=== PATIENT | female | born 1935 | race Caucasian/White ===

== ENCOUNTER 2018-03-31 12:06 | Emergency (ER) | payer OTHER ==
--- NOTE | 2018-03-31 12:17 | EDPHY ---
H & P Stated Complaint: R UPPER QUAD ABD PAIN AND NAUSEA Time Seen by Provider: 03/31/18 12:16 HPI/ROS: CHIEF COMPLAINT: Abdominal pain and vomiting HISTORY OF PRESENT ILLNESS: The patient presents to the ED with complaints of sharp upper abdominal pain which she characterizes as a bandlike discomfort which started earlier today. She initially had nausea which is progressed to bilious vomiting. She continues to have pain which seems to be localized to the right upper quadrant. The patient denies any history of recent abdominal surgery. Past surgical history is significant for hysterectomy only. The patient takes no regular medications aside from vitamins. She denies any recent upper respiratory infections. She reports her symptoms are moderate in nature. REVIEW OF SYSTEMS: A comprehensive 10 point review of systems is otherwise negative aside from elements mentioned in the history of present illness. Source: Patient Exam Limitations: No limitations - Personal History Current Tetanus Diphtheria and Acellular Pertussis (TDAP): Yes - Medical/Surgical History Hx Asthma: No Hx Chronic Respiratory Disease: No Hx Diabetes: No Hx Cardiac Disease: No Hx Renal Disease: No Hx Cirrhosis: No Hx Alcoholism: No Hx HIV/AIDS: No Hx Splenectomy or Spleen Trauma: No Other PMH: DENIES - Social History Smoking Status: Never smoked - Physical Exam Exam: General Appearance: Alert, no distress Eyes: Pupils equal and round no pallor or injection ENT, Mouth: Mucous membranes moist Respiratory: There are no retractions, lungs are clear to auscultation Cardiovascular: Regular rate and rhythm Gastrointestinal: Tenderness to palpation right upper quadrant Neurological: 5/5 strength noted all 4 extremities Skin: Warm and dry, no rashes Musculoskeletal: Neck is supple nontender Extremities: symmetrical, full range of motion Constitutional: Initial Vital Signs Temperature (C) 36.3 C 03/31/18 12:11 Heart Rate 67 03/31/18 12:11 Respiratory Rate 18 03/31/18 12:11 Blood Pressure 142/59 H 03/31/18 12:11 O2 Sat (%) 96 03/31/18 12:11 O2 Delivery Mode Room Air Allergies/Adverse Reactions: lidocaine [Lidocaine] Allergy (Intermediate, Verified 03/31/18 12:09) Palpatations amoxicillin trihydrate [From Augmentin] Allergy (Mild, Verified 03/31/18 12:09) nausea potassium clavula *RETIRED-11/24/11 [From Augmentin] Allergy (Mild, Verified 12:09) nausea Sulfa (Sulfonamide Antibiotics) Allergy (Verified 03/31/18 12:09) Dizzy Home Medications: Medication Instructions Recorded Hydrocodone/APAP 5/325 [[place] 1 - 2 each PO Q6 PRN #20 tab 03/31/18 5/325] Ondansetron Odt [Zofran Odt] 4 mg PO Q4PRN PRN #20 tab 03/31/18 Medical Decision Making - Diagnostics Imaging Results: Imaging Impressions Abdomen Ultrasound 03/31/18 12:17 Impression: Normal right upper quadrant ultrasound. Findings discussed with Jose E Garcia 03/31/2018 at 13:06. ED Course/Re-evaluation: Patient presented to the ED for evaluation of right upper quadrant pain and vomiting. Her initial examination did demonstrate significant tenderness in the right upper quadrant. Patient had an IV established. She received IV Toradol and Zofran. She received a L of normal saline. Workup in the emergency department included a CBC, serum chemistries, liver function test and lipase all of which are normal. The patient was taken for right upper quadrant ultrasound which demonstrated no evidence of cholelithiasis or cholecystitis. The patient underwent serial examinations in the ED. I re-evaluated the patient at 2:20 p.m. And she is feeling much better. Her right upper quadrant tenderness has resolved and she has no abdominal tenderness noted on exam. At this point time I do feel the patient likely is experiencing a viral gastroenteritis which precipitated her symptoms today. I do not feel that CT imaging is indicated based upon her current exam and workup. The patient is comfortable being discharged home with a prescription for anti emetics and pain medication. She is given return precautions. Differential Diagnosis: Differential diagnosis considered includes cholecystitis, pancreatitis, gastroenteritis, mesenteric adenitis, intestinal ischemia - Data Points Laboratory Results: Laboratory Results 03/31/18 12:25 03/31/18 12:25 03/31/18 03/31/18 12:25 12:25 WBC 6.23 10^3/uL 10^3/uL (3.80-9.50) RBC 4.47 10^6/uL 10^6/uL (4.18-5.33) Hgb 14.1 g/dL g/dL (12.6-16.3) Hct 42.4 % % (38.0-47.0) MCV 94.9 fL fL (81.5-99.8) MCH 31.5 pg pg (27.9-34.1) MCHC 33.3 g/dL g/dL (32.4-36.7) RDW 13.1 % % (11.5-15.2) Plt Count 205 10^3/uL 10^3/uL (150-400) MPV 9.9 fL fL (8.7-11.7) Neut % (Auto) 75.1 % H % (39.3-74.2) Lymph % (Auto) 17.0 % % (15.0-45.0) [place] % (Auto) 7.1 % % (4.5-13.0) Eos % (Auto) 0.2 % L % (0.6-7.6) Baso % (Auto) 0.3 % % (0.3-1.7) Nucleat RBC Rel Count 0.0 % % (0.0-0.2) Absolute Neuts (auto) 4.68 10^3/uL 10^3/uL (1.70-6.50) Absolute Lymphs (auto) 1.06 10^3/uL 10^3/uL (1.00-3.00) Absolute Monos (auto) 0.44 10^3/uL 10^3/uL (0.30-0.80) Absolute Eos (auto) 0.01 10^3/uL L 10^3/uL (0.03-0.40) Absolute Basos (auto) 0.02 10^3/uL 10^3/uL (0.02-0.10) Absolute Nucleated RBC 0.00 10^3/uL 10^3/uL (0-0.01) Immature Gran % 0.3 % % (0.0-1.1) Immature Gran # 0.02 10^3/uL 10^3/uL (0.00-0.10) Sodium 134 mEq/L L mEq/L (135-145) Potassium 3.9 mEq/L mEq/L (3.5-5.2) Chloride 103 mEq/L mEq/L (97-110) Carbon Dioxide 24 mEq/l mEq/l (22-31) Anion Gap 7 mEq/L mEq/L (6-14) BUN 27 mg/dL H mg/dL (7-23) Creatinine 0.8 mg/dL mg/dL (0.6-1.0) Estimated GFR > 60 Glucose 111 mg/dL H mg/dL (70-100) Calcium 9.3 mg/dL mg/dL (8.5-10.4) Total Bilirubin 0.9 mg/dL mg/dL (0.1-1.4) Conjugated Bilirubin 0.3 mg/dL mg/dL (0.0-0.5) Unconjugated Bilirubin 0.6 mg/dL mg/dL (0.0-1.1) AST 30 IU/L IU/L (14-46) ALT 26 IU/L IU/L (9-52) Alkaline Phosphatase 100 IU/L IU/L (38-126) Total Protein 7.0 g/dL g/dL (6.3-8.2) Albumin 4.3 g/dL g/dL (3.5-5.0) Lipase 263 IU/L IU/L (23-300) Medications Given: Discontinued Medications Ketorolac Tromethamine (Toradol) 30 mg IVP EDNOW ONE Stop: 03/31/18 13:33 Last Admin: 03/31/18 13:40 Dose: 30 mg Ondansetron HCl (Zofran) 4 mg IVP EDNOW ONE Stop: 03/31/18 13:34 Last Admin: 03/31/18 13:40 Dose: 4 mg Departure - Departure Disposition: Home, Routine, Self-Care Clinical Impression: Vomiting Abdominal pain Qualifiers: Abdominal location: right lower quadrant Qualified Code(s): R10.31 - Right lower quadrant pain Condition: Good Instructions: Acute Nausea and Vomiting (ED), Acute Abdominal Pain (ED) Additional Instructions: 1. Zofran as needed for nausea. 2. Take Ibuprofen or Motrin 600 mg by mouth three times a day. 3. [place] as needed for severe pain 4. Sometimes we are unable to diagnose an obvious cause of abdominal pain in the Emergency Department. Based upon our evaluation today, I believe your abdominal pain is secondary to a mild viral intestinal illness. Because more serious conditions can be difficult to diagnose early in the course of their presentation, we ask that you return to the Emergency Department in 8-12 hours for a recheck if you are still having pain. This is necessary to exclude the development of a more serious condition such as appendicitis or other intra- abdominal emergency. In the event your pain markedly increases before that time or you develop intractable vomiting or fever return to the Emergency Department immediately. Referrals: Kylie Porter MD [Primary Care Provider] - As per Instructions
[2018-03-31 12:45] LABS: PLATELET COUNT 205 10^3/uL (150-400)
[2018-03-31] MEDS ORDERED: KETOROLAC 30 MG/1 ML SDV IVP ONE (13:32)
[2018-03-31] MEDS ORDERED: ONDANSETRON 4 MG/2 ML VIAL IVP ONE (13:33)
[2018-03-31 14:44] VITALS: BP 145/69
== END 2018-03-31 14:43 | disposition home or self-care (01) ==
DX: R10.31 Right lower quadrant pain (principal); R11.10 Vomiting, unspecified
CPT/HCPCS: 76705; 96374; 96375; 99285; J1885; J2405

== ENCOUNTER 2018-05-01 11:03 | Emergency (ER) | payer OTHER ==
--- NOTE | 2018-05-01 11:23 | EDPHY ---
H & P Time Seen by Provider: 05/01/18 11:15 HPI/ROS: CHIEF COMPLAINT: Chest pain HISTORY OF PRESENT ILLNESS: Patient is an 82-year-old female who presents emergency department chest pain starting last night at 11:00 p.m.. Patient was sitting watching TV when she had a sharp stabbing pain the left posterior back. She then started developed left anterior chest pain. This lasted for approximately 4 hr and then resolved. She has no chest pain at this time. She called her daughter this morning who brought to the emergency department. Patient denies associated shortness of breath. No diaphoresis. No nausea vomiting. No leg pain or swelling. REVIEW OF SYSTEMS: 10 systems were reveiwed and are negative with the exception of the elements mentioned in the history of present illness. Past Medical/Surgical History: Negative Past surgical history: Orthopedic surgery Social history: Patient lives at home. She does not smoke. Smoking Status: Former smoker Physical Exam: Vitals noted. Mildly tachycardic to 109 GENERAL: Well-appearing, in no acute distress, alert. HEENT: Eyes normal to inspection, normal pharynx, no signs of dehydration. NECK: Normal, supple. RESPIRATORY: Clear to auscultation bilaterally, no rales, rhonchi or wheezing. CVS: Regular rate and rhythm, no rubs, murmurs, or gallops. ABDOMEN: Soft, nontender, nondistended, no organomegaly. BACK: Normal to inspection, no CVA tenderness. SKIN: Normal color, no rash, warm, dry. No pallor. EXTREMITIES: No pedal edema, no calf tenderness, no [place] sign or cords, no joint swelling. NEURO/PSYCH: Alert and oriented, normal mood and affect, normal motor sensory exam. Constitutional: Initial Vital Signs Temperature (C) 36.5 C 05/01/18 11:13 Heart Rate 109 H 05/01/18 11:13 Respiratory Rate 18 05/01/18 11:13 Blood Pressure 170/78 H 05/01/18 11:13 O2 Sat (%) 95 05/01/18 11:13 O2 Delivery Mode Room Air Allergies/Adverse Reactions: lidocaine [Lidocaine] Allergy (Intermediate, Verified 05/01/18 11:15) Palpatations amoxicillin trihydrate [From Augmentin] Allergy (Mild, Verified 05/01/18 11:15) nausea potassium clavula *RETIRED-11/24/11 [From Augmentin] Allergy (Mild, Verified 11:15) nausea Sulfa (Sulfonamide Antibiotics) Allergy (Verified 05/01/18 11:15) Dizzy Home Medications: Medication Instructions Recorded Prilosec 05/01/18 Vitamin D3 05/01/18 Medical Decision Making - Diagnostics Imaging Results: Imaging Impressions Chest X-Ray 05/01/18 11:59 Impression: Normal chest. ED Course/Re-evaluation: In the emergency department I discussed possible etiologies with the patient. I answered all her questions. Patient was given aspirin 324 mg orally. Laboratory studies, EKG and chest x-ray were ordered. EKG shows normal sinus rhythm, normal rate, normal axis, normal intervals. There are no ST or T-wave abnormalities. EKG is normal as interpreted by me. Chest x-ray: Normal Patient's CBC and chemistry unremarkable. Troponin is negative. D-dimer came back elevated at 0.55. I discussed the results with the patient and family. I answered all her questions. CT angiogram was ordered. CT angiogram: No acute disease noted. Please refer the dictated report by Dr. Jules. I discussed the result with the patient and her daughter. She has had no chest pain since last night. Troponin was negative. She will follow up with Cardiology. She will return worsening symptoms. Differential Diagnosis: My differential includes but not limited to ACS, acute [place], dissection, aneurysm , myocarditis, pericarditis, pleurisy, pneumonia, bronchitis - Data Points Laboratory Results: Laboratory Results 05/01/18 11:15 05/01/18 11:15 05/01/18 05/01/18 05/01/18 11:21 11:15 11:15 WBC RBC Hgb Hct MCV MCH MCHC RDW Plt Count MPV Neut % (Auto) Lymph % (Auto) [place] % (Auto) Eos % (Auto) Baso % (Auto) Nucleat RBC Rel Count Absolute Neuts (auto) Absolute Lymphs (auto) Absolute Monos (auto) Absolute Eos (auto) Absolute Basos (auto) Absolute Nucleated RBC Immature Gran % Immature Gran # D-Dimer 0.55 ug/mLFEU H ug/mLFEU (0.00-0.50) Sodium 138 mEq/L mEq/L (135-145) Potassium 4.4 mEq/L mEq/L (3.5-5.2) Chloride 106 mEq/L mEq/L (97-110) Carbon Dioxide 24 mEq/l mEq/l (22-31) Anion Gap 8 mEq/L mEq/L (6-14) BUN 25 mg/dL H mg/dL (7-23) Creatinine 0.8 mg/dL mg/dL (0.6-1.0) Estimated GFR > 60 Glucose 139 mg/dL H mg/dL (70-100) Calcium 9.5 mg/dL mg/dL (8.5-10.4) POC Troponin I 0.00 ng/mL ng/mL (0.00-0.08) 05/01/18 11:15 WBC 4.55 10^3/uL 10^3/uL (3.80-9.50) RBC 4.61 10^6/uL 10^6/uL (4.18-5.33) Hgb 14.4 g/dL g/dL (12.6-16.3) Hct 43.0 % % (38.0-47.0) MCV 93.3 fL fL (81.5-99.8) MCH 31.2 pg pg (27.9-34.1) MCHC 33.5 g/dL g/dL (32.4-36.7) RDW 13.3 % % (11.5-15.2) Plt Count 201 10^3/uL 10^3/uL (150-400) MPV 10.4 fL fL (8.7-11.7) Neut % (Auto) 58.1 % % (39.3-74.2) Lymph % (Auto) 31.2 % % (15.0-45.0) [place] % (Auto) 9.0 % % (4.5-13.0) Eos % (Auto) 0.4 % L % (0.6-7.6) Baso % (Auto) 0.9 % % (0.3-1.7) Nucleat RBC Rel Count 0.0 % % (0.0-0.2) Absolute Neuts (auto) 2.64 10^3/uL 10^3/uL (1.70-6.50) Absolute Lymphs (auto) 1.42 10^3/uL 10^3/uL (1.00-3.00) Absolute Monos (auto) 0.41 10^3/uL 10^3/uL (0.30-0.80) Absolute Eos (auto) 0.02 10^3/uL L 10^3/uL (0.03-0.40) Absolute Basos (auto) 0.04 10^3/uL 10^3/uL (0.02-0.10) Absolute Nucleated RBC 0.00 10^3/uL 10^3/uL (0-0.01) Immature Gran % 0.4 % % (0.0-1.1) Immature Gran # 0.02 10^3/uL 10^3/uL (0.00-0.10) D-Dimer Sodium Potassium Chloride Carbon Dioxide Anion Gap BUN Creatinine Estimated GFR Glucose Calcium POC Troponin I Medications Given: Discontinued Medications Aspirin (Aspirin) 324 mg PO EDNOW ONE Stop: 05/01/18 12:00 Last Admin: 05/01/18 12:03 Dose: 324 mg Point of Care Test Results: Chemistry 05/01/18 11:21 POC Troponin I 0.00 ng/mL ng/mL (0.00-0.08) Departure - Departure Disposition: Home, Routine, Self-Care Clinical Impression: Chest pain Qualifiers: Chest pain type: unspecified Qualified Code(s): R07.9 - Chest pain, unspecified Condition: Good Instructions: Chest Pain (ED) Additional Instructions: Return with increasing chest pain, shortness of breath, fever or any other concerns. You need close follow-up with Dr. Porter. You have also been given follow-up information with [facility]. Call Thursday to make appointment. Referrals: Kylie Porter MD [Primary Care Provider] - 1-2 days without fail
[2018-05-01] MEDS ORDERED: ASPIRIN 81 MG CHEWABLE TAB PO ONE (11:59)
[2018-05-01 12:08] LABS: PLATELET COUNT 201 10^3/uL (150-400)
[2018-05-01] MEDS ORDERED: IOHEXOL 350mgI/ML (OMNIPAQUE) 150 ML BTL IV ONE (13:33)
[2018-05-01 14:36] VITALS: BP 132/65
--- NOTE | 2018-05-01 14:52 | CPEKG ---
Test Reason : OPEN Blood Pressure : / mmHG Vent. Rate : 073 BPM Atrial Rate : 072 BPM P-R Int : 143 ms QRS Dur : 078 ms QT Int : 383 ms P-R-T Axes : 065 047 045 degrees QTc Int : 422 ms Sinus rhythm Confirmed by Miguelina Burleson ([id number]) on 05/01/2018 2:52:10 PM Referred By: Miguelina Burleson Confirmed By:Miguelina Burleson
== END 2018-05-01 14:35 | disposition home or self-care (01) ==
DX: R07.9 Chest pain, unspecified (principal); M54.9 Dorsalgia, unspecified
CPT/HCPCS: 71046; 71275; 93005; 99285; Q9967; 84484-ER